=== PATIENT | female | born 1985 | race Caucasian/White ===

== ENCOUNTER 2019-01-19 18:19 | Emergency (ER) | payer OTHER ==
--- NOTE | 2019-01-19 19:03 | RAD REPORT ---
EXAM DESCRIPTION: RAD - Chest Pa And Lat (2 Views) - 01/19/2019 6:56 pm CLINICAL HISTORY: COUGH Chest pain. COMPARISON: <Comparisons> FINDINGS: Right upper lobe airspace opacity is present compatible with developing pneumonia. The hea rt is normal in size. No displaced fractures. IMPRESSION: Right upper lobe pneumonia.
--- NOTE | 2019-01-19 19:22 | ER ---
Nurse's Notes [facility] Name: Sally West Age: 33 yrs Sex: Female : 1985 Arrival Date: 01/19/2019 Time: 18:21 Bed 24 Private MD: Diagnosis: Pneumonia, unspecified organism Presentation: 01/19 18:31 Presenting complaint: Patient states: "I've been coughing a lot, I'm short of breath aj1 and I've had a really bad headache for the past week." Denies fever. Transition of care: patient was not received from another setting of care. Onset of symptoms was January 12, 2019. Risk Assessment: Do you want to hurt yourself or someone else? Patient reports no desire to harm self or others. Initial Sepsis Screen: Does the patient meet any 2 criteria? No. Patient's initial sepsis screen is negative. Does the patient have a suspected source of infection? Yes: Productive cough/pneumonia. Care prior to arrival: None. 18:31 Method Of Arrival: Ambulatory aj1 18:31 Acuity: MANA 4 aj1 Triage Assessment: 18:33 General: Appears in no apparent distress. comfortable, Behavior is calm, cooperative, aj1 appropriate for age. Pain: Complains of pain in chest Pain does not radiate. Pain currently is 4 out of 10 on a pain scale. Neuro: Level of Consciousness is awake, alert, obeys commands, Oriented to person, place, time, situation. Cardiovascular: Patient's skin is warm and dry. Respiratory: Reports shortness of breath cough that is Airway is patent Respiratory effort is even, unlabored, Respiratory pattern is regular, symmetrical, Onset: The symptoms/episode began/occurred one week ago, the patient has mild shortness of breath. 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 - Social history:: Smoking status: Patient/guardian denies using tobacco. - Ebola Screening: : Patient denies travel to an Ebola-affected area in the 21 days before illness onset. Screenin:41 Abuse screen: Denies threats or abuse. Denies injuries from another. Nutritional ca1 screening: No deficits noted. Tuberculosis screening: No symptoms or risk factors identified. Fall Risk None identified. Assessment: 18:42 General: Appears in no apparent distress. comfortable, Behavior is calm, cooperative, ca1 appropriate for age. Pain: Complains of pain in scalp and chest Pain does not radiate. Pain currently is 4 out of 10 on a pain scale. Pain began 2-3 days ago. Pain: Aggravated by coughing. Neuro: Level of Consciousness is awake, alert, obeys commands, Oriented to person, place, time, situation. Cardiovascular: Heart tones S1 S2 present Capillary refill < 3 seconds Patient's skin is warm and dry. Pulses are all present. Rhythm is regular. Respiratory: Reports cough that is non-productive, persistent since few weeks ago Airway is patent Respiratory effort is even, unlabored, Respiratory pattern is regular, symmetrical, Breath sounds are clear bilaterally. GI: Abdomen is round non-distended, Bowel sounds present X 4 quads. Abd is soft and non tender X 4 quads. : No deficits noted. No signs and/or symptoms were reported regarding the genitourinary system. EENT: Throat is pink Reports pain in throat. Derm: Skin is intact, is healthy with good turgor, Skin is pink, warm \\T\\ dry. Musculoskeletal: Circulation, motion, and sensation intact. Capillary refill < 3 seconds, Range of motion: intact in all extremities. 19:43 Reassessment: Patient appears in no apparent distress at this time. Patient is alert, ca1 oriented x 3, equal unlabored respirations, skin warm/dry/pink. For 15-minute observation after administration of Rocephin. Vital Signs: 18:33 BP 105 / 92; Pulse 115; Resp 20; Temp 98.6; Pulse Ox 100% on R/A; Weight 98.88 kg (R); aj1 Height 5 ft. 2 in. (157.48 cm) (R); 19:43 BP 139 / 94; Pulse 101; Resp 16 S; Temp 98.5(O); Pulse Ox 98% on R/A; ca1 18:33 Body Mass Index 39.87 (98.88 kg, 157.48 cm) aj1 ED Course: 18:21 Patient arrived in ED. mr 18:32 Triage completed. aj1 18:33 Arm band placed on Patient placed in an exam room. aj1 18:35 Radha Corbin, HOLLIE is Primary Nurse. ca1 18:37 Alba Capellan FNP-C is PHCP. snw 18:38 Nicole Vogt MD is Attending Physician. snw 18:41 Patient has correct armband on for positive identification. Placed in gown. Bed in low ca1 position. Call light in reach. Side rails up X 1. Pulse ox on. NIBP on. Warm blanket given. 18:41 No provider procedures requiring assistance completed. ca1 18:57 Chest Pa And Lat (2 Views) XRAY In Process Unspecified. EDMS 19:08 Flu Sent. lt1 20:17 Patient did not have IV access during this emergency room visit. aj1 Administered Medications: 19:20 Drug: Zithromax 500 mg Route: PO; ca1 20:16 Follow up: Response: No adverse reaction aj1 19:22 Drug: Albuterol 2.5 mg Route: Inhalation; ca1 20:16 Follow up: Response: No adverse reaction aj1 19:43 Drug: Rocephin (cefTRIAXone) 1 grams Route: IM; Site: right gluteus; ca1 20:16 Follow up: Response: No adverse reaction aj1 Outcome: 19:22 Discharge ordered by . snw 20:17 Discharged to home ambulatory. aj1 20:17 Condition: good 20:17 Discharge instructions given to patient, Instructed on discharge instructions, follow up and referral plans. medication usage, Demonstrated understanding of instructions, follow-up care, medications, Prescriptions given X 2. 20:17 Patient left the ED. aj1 Signatures: Dispatcher [employer] EDMS Shelbie Sierra RN RN aj1 Alba Capellan FNP-C FNP-Dom Claudia Levy mr Radha Corbin, HOLLIE RN ca1 Connie Mosher lt1
--- NOTE | 2019-01-19 19:22 | EDPHYS ---
Physician Documentation [facility] Name: Sally West Age: 33 yrs Sex: Female : 1985 Arrival Date: 01/19/2019 Time: 18:21 Bed 24 Private MD: ED Physician Nicole Vogt HPI: 01/19 19:21 This 33 yrs old Female presents to ER via Ambulatory with complaints of snw Cough, Shortness Of Breath, Headache. 19:21 The patient or guardian reports airway noise, cough, difficulty breathing, flu snw symptoms. Onset: The symptoms/episode began/occurred suddenly, 5 day(s) ago, and became persistent. Modifying factors: The symptoms are alleviated by nothing, the symptoms are aggravated by exertion. Associated signs and symptoms: The patient has no apparent associated signs or symptoms. The patient has experienced a previous episode. The patient has not recently seen a physician. 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 - Social history:: Smoking status: Patient/guardian denies using tobacco. - Ebola Screening: : Patient denies travel to an Ebola-affected area in the 21 days before illness onset. ROS: 19:20 Eyes: Negative for injury, pain, redness, and discharge, ENT: Negative for injury, snw pain, and discharge, Neck: Negative for injury, pain, and swelling, Cardiovascular: Negative for chest pain, palpitations, and edema. 19:20 Abdomen/GI: Negative for abdominal pain, nausea, vomiting, diarrhea, and constipation, Back: Negative for injury and pain, : Negative for injury, bleeding, discharge, and swelling, MS/Extremity: Negative for injury and deformity, Skin: Negative for injury, rash, and discoloration, Neuro: Negative for headache, weakness, numbness, tingling, and seizure. 19:20 Constitutional: Positive for fatigue, malaise, poor PO intake. 19:20 Respiratory: Positive for cough, shortness of breath. Exam: 19:16 Constitutional: This is a well developed, well nourished patient who is awake, alert, snw and in no acute distress. Head/Face: Normocephalic, atraumatic. Eyes: Pupils equal round and reactive to light, extra-ocular motions intact. Lids and lashes normal. Conjunctiva and sclera are non-icteric and not injected. Cornea within normal limits. Periorbital areas with no swelling, redness, or edema. ENT: Nares patent. No nasal discharge, no septal abnormalities noted. Tympanic membranes are normal and external auditory canals are clear. Oropharynx with no redness, swelling, or masses, exudates, or evidence of obstruction, uvula midline. Mucous membranes moist. Neck: Trachea midline, no thyromegaly or masses palpated, and no cervical lymphadenopathy. Supple, full range of motion without nuchal rigidity, or vertebral point tenderness. No Meningismus. Chest/axilla: Normal chest wall appearance and motion. Nontender with no deformity. No lesions are appreciated. 19:16 Abdomen/GI: Soft, non-tender, with normal bowel sounds. No distension or tympany. No guarding or rebound. No evidence of tenderness throughout. Back: No spinal tenderness. No costovertebral tenderness. Full range of motion. Skin: Warm, dry with normal turgor. Normal color with no rashes, no lesions, and no evidence of cellulitis. MS/ Extremity: Pulses equal, no cyanosis. Neurovascular intact. Full, normal range of motion. Neuro: Awake and alert, GCS 15, oriented to person, place, time, and situation. Cranial nerves II-XII grossly intact. Motor strength 5/5 in all extremities. Sensory grossly intact. Cerebellar exam normal. Normal gait. Psych: Awake, alert, with orientation to person, place and time. Behavior, mood, and affect are within normal limits. 19:16 Cardiovascular: Rate: tachycardic, Rhythm: regular, Pulses: no pulse deficits are appreciated, Heart sounds: normal. 19:16 Respiratory: the patient does not display signs of respiratory distress, Respirations: shallow respirations, Breath sounds: + upper airway congestion. deep breath stimulates cough. Vital Signs: 18:33 BP 105 / 92; Pulse 115; Resp 20; Temp 98.6; Pulse Ox 100% on R/A; Weight 98.88 kg (R); aj1 Height 5 ft. 2 in. (157.48 cm) (R); 19:43 BP 139 / 94; Pulse 101; Resp 16 S; Temp 98.5(O); Pulse Ox 98% on R/A; ca1 18:33 Body Mass Index 39.87 (98.88 kg, 157.48 cm) aj1 MDM: 18:38 Patient medically screened. snw 19:23 Data reviewed: vital signs, nurses notes. Data interpreted: Pulse oximetry: on room air snw is 100 %. Interpretation: normal. Counseling: I had a detailed discussion with the patient and/or guardian regarding: the historical points, exam findings, and any diagnostic results supporting the discharge/admit diagnosis, the presence of at least one elevated blood pressure reading (>120/80) during this emergency department visit, radiology results, the need for outpatient follow up, to return to the emergency department if symptoms worsen or persist or if there are any questions or concerns that arise at home. Special discussion: Based on the history and exam findings, there is no indication for further emergent testing or inpatient evaluation. I discussed with the patient/guardian the need to see the primary care provider for further evaluation of the symptoms. 01/19 18:38 Order name: Flu snw 01/19 18:38 Order name: Chest Pa And Lat (2 Views) XRAY; Complete Time: 19:06 snw Administered Medications: 19:20 Drug: Zithromax 500 mg Route: PO; ca1 20:16 Follow up: Response: No adverse reaction aj1 19:22 Drug: Albuterol 2.5 mg Route: Inhalation; ca1 20:16 Follow up: Response: No adverse reaction aj1 19:43 Drug: Rocephin (cefTRIAXone) 1 grams Route: IM; Site: right gluteus; ca1 20:16 Follow up: Response: No adverse reaction aj1 Disposition: 21:32 Co-signature as Attending Physician, Nicole Vogt MD. ma2 Disposition: 01/19/19 19:22 Discharged to Home. Impression: Pneumonia, unspecified organism. - Condition is Stable. - Discharge Instructions: Fever, Adult, Community-Acquired Pneumonia, Adult, Rehydration, Adult. - Prescriptions for Albuterol Sulfate 90 mcg/actuation - inhale 1-2 puff by INHALATION route every 4-6 hours; 1 Inhaler. Zithromax 500 mg Oral Tablet - take 1 tablet by ORAL route once daily for 5 days; 5 tablet. - Work release form, Medication Reconciliation Form, Thank You Letter, Antibiotic Education, Prescription Opioid Use form. - Follow up: Private Physician; When: 2 - 3 days; Reason: Recheck today's complaints, Continuance of care, Re-evaluation by your physician. Follow up: Emergency Department; When: As needed; Reason: Worsening of condition. Signatures: Dispatcher [employer] EDShelbie Yoder RN RN aj1 Alba Capellan, CUSTOMER SUPPORT EXECUTIVE-C CUSTOMER SUPPORT EXECUTIVE-Csnw Nicole Vogt MD MD ma2 Radha Coribn RN RN ca1 Corrections: (The following items were deleted from the chart) 20:17 19:22 01/19/2019 19:22 Discharged to Home. Impression: Pneumonia, unspecified organism. aj1 Condition is Stable. Forms are Medication Reconciliation Form, Thank You Letter, Antibiotic Education, Prescription Opioid Use. Follow up: Private Physician; When: 2 - 3 days; Reason: Recheck today's complaints, Continuance of care, Re-evaluation by your physician. Follow up: Emergency Department; When: As needed; Reason: Worsening of condition. snw
[2019-01-19] MEDS ORDERED: AZITHROMYCIN 250 MG TAB ONE (19:32)
[2019-01-19] MEDS ORDERED: ALBUTEROL 2.5 MG/3 ML NEB SOL ONE (19:32)
[2019-01-19] MEDS ORDERED: CEFTRIAXONE 1000 MG/VIAL ONE (19:33)
[2019-01-19] MEDS ORDERED: LIDOCAINE 1% MPF 2 ML AMPULE ONE (19:33)
== END 2019-01-19 20:17 | disposition home or self-care (01) ==
LOC: ER 18:19
DX: J18.9 Pneumonia, unspecified organism (principal); Z88.2 Allergy status to sulfonamides
CPT/HCPCS: 71046; 87804; 96372; 99284; J2001

== ENCOUNTER 2019-04-01 09:45 | Emergency (ER) | payer OTHER ==
--- NOTE | 2019-04-01 10:28 | EDPHYS ---
Physician Documentation [facility] Name: Sally West Age: 33 yrs Sex: Female : 1985 Arrival Date: 04/01/2019 Time: 09:47 Bed 11 Private MD: ED Physician Juma Bailey HPI: 04/01 10:22 This 33 yrs old Female presents to ER via Ambulatory with complaints of Sinus cp Pain. 10:22 The patient or guardian reports nasal congestion, sinus pressure/pain. Onset: The cp symptoms/episode began/occurred 2 week(s) ago. Associated signs and symptoms: Pertinent positives: earache, rhinorrhea, sore throat, slight cough, Pertinent negatives: fever. 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 - Social history:: Smoking status: Patient/guardian denies using tobacco, Patient/guardian denies using alcohol, street drugs. - Ebola Screening: : Patient negative for fever greater than or equal to 101.5 degrees Fahrenheit, and additional compatible Ebola Virus Disease symptoms Patient denies exposure to infectious person Patient denies travel to an Ebola-affected area in the 21 days before illness onset No symptoms or risks identified at this time. ROS: 10:24 Eyes: Negative for injury, pain, redness, and discharge. cp 10:24 Constitutional: Negative for body aches, chills, fever. 10:24 ENT: Positive for ear pain, sinus congestion, sinus pain, sore throat. 10:24 Respiratory: Positive for cough, Negative for shortness of breath, wheezing. 10:24 Abdomen/GI: Negative for abdominal pain, nausea, vomiting, and diarrhea. 10:24 Neuro: Positive for headache, Negative for altered mental status, dizziness, weakness. 10:24 All other systems are negative. Exam: 10:24 Constitutional: The patient appears in no acute distress, alert, awake, non-toxic, well cp developed, well nourished. 10:24 Head/face: Sinus tenderness, that is moderate, is located over the right maxillary sinus and left maxillary sinus. 10:24 Eyes: Periorbital structures: appear normal, Conjunctiva: normal, no exudate, no injection, Lids and lashes: appear normal, bilaterally. 10:24 ENT: External ear(s): are unremarkable, Ear canal(s): are normal, clear, TM's: dullness, bilaterally, fluid levels, on the left, Nose: is normal, Mouth: Lips: moist, Oral mucosa: pink and intact, moist, Posterior pharynx: Airway: no evidence of obstruction, patent, Tonsils: are normal in appearance, erythema, is not appreciated, exudate, is not appreciated. 10:24 Neck: ROM/movement: is normal, is supple, without pain, no range of motions limitations, no meningismus, no nuchal rigidity. 10:24 Chest/axilla: Inspection: normal, Palpation: is normal, no crepitus, no tenderness. 10:24 Cardiovascular: Rate: normal, Rhythm: regular. 10:24 Respiratory: the patient does not display signs of respiratory distress, Respirations: cp normal. Vital Signs: 09:55 BP 141 / 92; Pulse 96; Resp 14; Temp 99.2(O); Pulse Ox 100% ; Weight 97.98 kg; Height 5 ch ft. 2 in. (157.48 cm); Pain 4/10; 09:55 Body Mass Index 39.51 (97.98 kg, 157.48 cm) ch MDM: 10:15 Patient medically screened. cp 10:26 Data reviewed: vital signs, nurses notes, and as a result, I will discharge patient. cp 10:26 Differential Diagnosis: Influenza Upper Respiratory Infection Sinusitis Otitis Media cp Pneumonia. Counseling: I had a detailed discussion with the patient and/or guardian regarding: the historical points, exam findings, and any diagnostic results supporting the discharge/admit diagnosis, to return to the emergency department if symptoms worsen or persist or if there are any questions or concerns that arise at home. ED course: Will treat with 10 day course of Augmentin due to length of symptoms for 2 weeks. Administered Medications: No medications were administered Disposition: 10:45 Chart complete. cp 16:18 Co-signature as Attending Physician, Juma Bailey MD. rn Disposition: 04/01/19 10:27 Discharged to Home. Impression: Acute sinusitis. - Condition is Stable. - Discharge Instructions: Sinusitis, Adult. - Prescriptions for Augmentin 875- 125 mg Oral Tablet - take 1 tablet by ORAL route every 12 hours for 10 days; 20 tablet. Medrol (Florian) 4 mg Oral Tablets, Dose Pack - take 1 tablet by ORAL route as directed - follow package instructions; 1 packet. - Medication Reconciliation Form, Thank You Letter, Antibiotic Education, Prescription Opioid Use form. - Follow up: Private Physician; When: 1 week; Reason: Worsening of condition. - Problem is new. - Symptoms have improved. Signatures: Celia Amaral RN RN Aneta Garcia RN RN iw Nieto, Roman, MD MD rn Page, Corey, PA PA cp Corrections: (The following items were deleted from the chart) 10:37 10:27 04/01/2019 10:27 Discharged to Home. Impression: Acute sinusitis. Condition is iw Stable. Forms are Medication Reconciliation Form, Thank You Letter, Antibiotic Education, Prescription Opioid Use. Follow up: Private Physician; When: 1 week; Reason: Worsening of condition. Problem is new. Symptoms have improved. cp
--- NOTE | 2019-04-01 10:28 | ER ---
Nurse's Notes [facility] Name: Sally West Age: 33 yrs Sex: Female : 1985 Arrival Date: 04/01/2019 Time: 09:47 Bed 11 Private MD: Diagnosis: Acute sinusitis Presentation: 04/01 09:56 Presenting complaint: Patient states: sinus congestion for two weeks. Transition of care: patient was not received from another setting of care. Onset of symptoms was March 18, 2019. Risk Assessment: Do you want to hurt yourself or someone else? Patient reports no desire to harm self or others. Initial Sepsis Screen: Does the patient meet any 2 criteria? No. Patient's initial sepsis screen is negative. Does the patient have a suspected source of infection? No. Patient's initial sepsis screen is negative. Care prior to arrival: None. 09:56 Method Of Arrival: Ambulatory 09:56 Acuity: MANA 4 Triage Assessment: 10:00 Pain: Also complains of no other associated symptoms. 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 - Social history:: Smoking status: Patient/guardian denies using tobacco, Patient/guardian denies using alcohol, street drugs. - Ebola Screening: : Patient negative for fever greater than or equal to 101.5 degrees Fahrenheit, and additional compatible Ebola Virus Disease symptoms Patient denies exposure to infectious person Patient denies travel to an Ebola-affected area in the 21 days before illness onset No symptoms or risks identified at this time. Screenin:11 Abuse screen: Denies threats or abuse. Denies injuries from another. Nutritional iw screening: No deficits noted. Tuberculosis screening: No symptoms or risk factors identified. Fall Risk No IV (0 pts). Assessment: 10:07 General: Appears in no apparent distress. Behavior is calm, cooperative. Pain: iw Complains of pain in right eye, nose and left eye. Neuro: Level of Consciousness is awake, alert, obeys commands, Oriented to person, place, time, situation. Cardiovascular: Capillary refill < 3 seconds in bilateral fingers Patient's skin is warm and dry. Respiratory: Respiratory effort is even, unlabored. Derm: Skin is intact, is healthy with good turgor. Musculoskeletal: Range of motion: intact in all extremities. Vital Signs: 09:55 BP 141 / 92; Pulse 96; Resp 14; Temp 99.2(O); Pulse Ox 100% ; Weight 97.98 kg; Height 5 ch ft. 2 in. (157.48 cm); Pain 4/10; 09:55 Body Mass Index 39.51 (97.98 kg, 157.48 cm) ED Course: 09:47 Patient arrived in ED. rg4 09:57 Triage completed. 10:00 Arm band placed on. iw 10:07 Aneta Baum, RN is Primary Nurse. iw 10:07 Patient has correct armband on for positive identification. iw 10:11 No provider procedures requiring assistance completed. Patient did not have IV access iw during this emergency room visit. 10:13 Ravindra Herron PA is PHCP. cp 10:14 Juma Bailey MD is Attending Physician. cp Administered Medications: No medications were administered Outcome: 10:27 Discharge ordered by MD. cp 10:36 Discharged to home iw 10:36 Condition: good 10:36 Discharge instructions given to patient, Instructed on discharge instructions, follow iw up and referral plans. medication usage, Demonstrated understanding of instructions, follow-up care, medications, Prescriptions given X 2. 10:37 Patient left the ED. iw Signatures: Celia Amaral, HOLLIE BROWNE Aneta Baum, RN RN Ravindra Herron PA PA Zoila Leon rg4
== END 2019-04-01 10:37 | disposition home or self-care (01) ==
LOC: ER 09:45
DX: J01.90 Acute sinusitis, unspecified (principal); Z88.2 Allergy status to sulfonamides
CPT/HCPCS: 99282